=== PATIENT | female | born 1965 | race Two or more races ===

== ENCOUNTER → 2016-10-22 | Outpatient (CLI) | payer MEDICAID | LOC: WI 09:21 | PROVIDERS: ATTEND Internal Medicine | DX: M54.2 Cervicalgia (principal) | CPT/HCPCS: 76536 ==

== ENCOUNTER → 2017-02-22 | Outpatient (CLI) | payer MEDICAID ==
--- NOTE | 2017-03-06 10:37 | WOMENS IMAGING REPORT ---
EXAM DESCRIPTION: BILAT SCREENING MAMMO W/CAD COMPLETED DATE/TIME: 02/22/2017 10:47 am REASON FOR STUDY: ROUTINE SCREENING; Z12.31 Z12.31 ENCNTR SCREEN MAMMOGRAM FOR MALIGNANT NEOPLASM O F JEFF COMPARISON: Outside mammograms from 2013. TECHNIQUE: Standard craniocaudal and mediolateral oblique views of each breast recorded using I[employer]iFeng[employer] l acquisition. LIMITATIONS: None. FINDINGS: No masses, calcifications or architectural distortion. No areas of suspicion. Read with the assistance of CAD. .[facility] - R2 Cenova Version 1.3 .[facility] Imaging - R2 Cenova Version 1.3 .[facility] - R2 Cenova Version 2.4 .[facility] - R2 Cenova Version 2.4 .[facility] - R2 Fleet Service Clerk Version 9.2 IMPRESSION: NORMAL MAMMOGRAM. BIRADS 1. BREAST DENSITY: b. There are scattered areas of fibroglandular density. BIRAD: 1 NEGATIVE RECOMMENDATION: ROUTINE SCREENING COMMENT: The patient has been notified of the results by letter per SA requirements. Additional no tification policies are in place for contacting patient with suspicious or incomplete findings. Quality ID #[id number]: The [employer] recommends an annual screening mammogram for women aged 40 years or over. This facility utilizes a reminder system to ensure that all patients receive reminder letters, and/or direct phone calls for appointments. This includes reminders for routine scr eening mammograms, diagnostic mammograms, or other Breast Imaging Interventions when appropriate. Th is patient will be placed in the appropriate reminder system. The [employer] (ACR) has developed recommendations for screening MRI of the breast s in certain patient populations, to be used in conjunction with mammography. Breast MRI surveillanc e may be appropriate for women with more than 20% lifetime risk of developing breast cancer as deter mined by genetic testing, significant family history of the disease, or history of mantle radiation f or Hodgkins Disease. ACR Practice Guidelines 2008. TECHNICAL DOCUMENTATION: FINDING NUMBER: (1) ASSESSMENT: (1) JOB ID: [id number] [employer]- All Rights Reserved
== END ==
LOC: WI 09:53
PROVIDERS: ATTEND Internal Medicine
DX: Z12.31 Encounter for screening mammogram for malignant neoplasm of breast (principal)
CPT/HCPCS: 77067; G0202

== ENCOUNTER 2017-04-12 09:35 | Emergency (ER) | payer MEDICAID ==
[2017-04-12 09:46] VITALS: BP 156/93
--- NOTE | 2017-04-12 10:09 | ER Document Report ---
HPI - HPI Patient complains to provider of: left ear pain Onset: Yesterday Onset/Duration: Gradual Context: 52 yo female felt something biting and scratching inside left ear canal last night. No fever. No recent URI> used h202 to remove it. Never saw anything come out. Associated Symptoms: None Exacerbated by: Denies Relieved by: Denies - ROS ROS below otherwise negative: Yes Systems Reviewed and Negative: Yes All other systems reviewed and negative - REPRODUCTIVE Reproductive: DENIES: : Past Medical History - General Information source: Patient - Social History Smoking Status: Unknown if Ever Smoked Frequency of alcohol use: None Drug Abuse: None Lives with: Family Family History: Reviewed & Not Pertinent - Past Medical History Cardiac Medical History: Reports: Hx Hypertension Endocrine Medical History: Reports: Hx Diabetes Mellitus Type 2 GI Medical History: Reports: Hx Gastroesophageal Reflux Disease Musculoskeltal Medical History: Reports Hx Gout, Reports Hx Musculoskeletal Trauma Psychiatric Medical History: Reports: Hx Anxiety, Hx Bipolar Disorder, Hx Depression Past Surgical History: Reports: Hx Section - Immunizations Immunizations up to date: Yes Hx Diphtheria, Pertussis, Tetanus Vaccination: Yes Hx Pneumococcal Vaccination: 04/28/12 Vertical Provider Document - CONSTITUTIONAL Agree With Documented VS: Yes Exam Limitations: No Limitations General Appearance: No Apparent Distress - INFECTION CONTROL TRAVEL OUTSIDE OF THE [place] IN LAST 30 DAYS: No - HEENT HEENT: Normocephalic. negative: Tympanic Membrane Red, Tympanic Membrane Bulging Notes: mild fluid behind left TM, sensation clears if she valsalva's - NECK Neck: Supple. negative: Lymphadenopathy-Left, Lymphadenopathy-Right - RESPIRATORY Respiratory: Breath Sounds Normal, No Respiratory Distress O2 Sat by Pulse Oximetry: 97 - CARDIOVASCULAR Cardiovascular: Regular Rate, Regular Rhythm - NEURO Level of Consciousness: Awake, Alert, Appropriate - DERM Integumentary: Warm, Dry Course - Vital Signs Vital signs: Temp Pulse Resp BP Pulse Ox 97.4 F 94 18 156/93 H 97 04/12/17 09:44 04/12/17 09:44 04/12/17 09:44 04/12/17 09:44 04/12/17 09:44 Discharge - Discharge Clinical Impression: Acute serous otitis media, left ear Qualifiers: Recurrence: not specified as recurrent Qualified Code(s): H65.02 - Acute serous otitis media, left ear Condition: Good Disposition: HOME, SELF-CARE Instructions: Use of Diphenhydramine, ENT, Serous Otitis Media ([facility]) Additional Instructions: over the counter Benadryl may help See ears nose and throat doctor if persists to er any concerns Please complete the patient satisfaction survey if you get one, and return it.. If you do not receive a survey, then you can go to the [facility] website, [email or web address] and place your comments about your very good care. Thank you very much. It was a pleasure being your medical provider today.
== END 2017-04-12 10:18 | disposition home or self-care (01) ==
LOC: ER 09:35
DX: H65.02 Acute serous otitis media, left ear (principal); I10 Essential (primary) hypertension; E11.9 Type 2 diabetes mellitus without complications
CPT/HCPCS: 99282

== ENCOUNTER 2017-12-05 11:24 | Emergency (ER) | payer MEDICAID ==
--- NOTE | 2017-12-05 12:36 | RADIOLOGY REPORT (SQ) ---
EXAM DESCRIPTION: HAND LEFT 3 VIEWS COMPLETED DATE/TIME: 12/05/2017 12:27 pm REASON FOR STUDY: brick fell on left hand x 1 day ago COMPARISON: 01/14/2013 EXAM PARAMETERS: NUMBER OF VIEWS: Three views. TECHNIQUE: AP, lateral and oblique radiographic images acquired of the left hand. LIMITATIONS: None. FINDINGS: MINERALIZATION: Normal. BONES: There is a fracture of the neck of the 5th metacarpal with dorsal angulation. JOINTS: Degenerative joint changes are most prominent in the distal interphalangeal joints. SOFT TISSUES: No soft tissue swelling. No foreign body. OTHER: No other significant finding. IMPRESSION: Fracture of the neck of the 5th metacarpal. Degenerative joint disease. TECHNICAL DOCUMENTATION: JOB ID: [id number] [employer]- All Rights Reserved Reading location - IP/workstation name: [email or web address]
[2017-12-05] MEDS ORDERED: OXYCODONE-ACETAMINOPHEN 5-325 MG TABLET PO ONE (12:44)
--- NOTE | 2017-12-05 12:50 | ER Document Report ---
HPI - HPI Patient complains to provider of: Hand injury Onset: Yesterday Quality of pain: Achy Pain Level: 3 Context: Patient states yesterday she tripped over her dog and fell hitting her hand on a break. Patient complains of continued hand pain with swelling since then. Associated Symptoms: Other - Left hand pain. denies: Vomiting Exacerbated by: Movement Relieved by: Denies Similar symptoms previously: No Recently seen / treated by doctor: No - ROS ROS below otherwise negative: Yes Systems Reviewed and Negative: Yes All other systems reviewed and negative - NEURO Neurology: DENIES: Weakness - CARDIOVASCULAR Cardiovascular: DENIES: Chest pain - GASTROINTESTINAL Gastrointestinal: DENIES: Nausea, Patient vomiting - REPRODUCTIVE Reproductive: DENIES: : - MUSCULOSKELETAL Musculoskeletal: REPORTS: Extremity pain, Swelling - DERM Skin Color: Normal Past Medical History - General Information source: Patient - Social History Smoking Status: Current Every Day Smoker Smoking Education Provided: Yes Frequency of alcohol use: Occasional Drug Abuse: None Occupation: None Family History: Reviewed & Not Pertinent - Past Medical History Cardiac Medical History: Reports: Hx Hypertension Denies: Hx Atrial Fibrillation, Hx Congestive Heart Failure, Hx Coronary Artery Disease, Hx Heart Attack, Hx Hypercholesterolemia, Hx Peripheral Vascular Disease, Hx Heart Murmur Pulmonary Medical History: Denies: Hx Tuberculosis Endocrine Medical History: Reports: Hx Diabetes Mellitus Type 1, Hx Diabetes Mellitus Type 2. Denies: Hx Graves' Disease, Hx Hyperthyroidism, Hx Hypothyroidism Renal/ Medical History: Denies: Hx End Stage Renal Disease, Hx Kidney Stones, Hx Peritoneal Dialysis GI Medical History: Reports: Hx Gastroesophageal Reflux Disease. Denies: Hx Crohn's Disease, Hx Hiatal Hernia, Hx Irritable Bowel, Hx Liver Failure, Hx Pancreatitis, Hx Ulcer Musculoskeltal Medical History: Reports Hx Gout, Reports Hx Musculoskeletal Trauma Psychiatric Medical History: Reports: Hx Anxiety, Hx Bipolar Disorder, Hx Depression Denies: Hx Post Traumatic Stress Disorder, Hx Schizophrenia Past Surgical History: Reports: Hx Section. Denies: Hx Colostomy, Hx Pacemaker - Immunizations Immunizations up to date: Yes Hx Diphtheria, Pertussis, Tetanus Vaccination: Yes Hx Pneumococcal Vaccination: 04/28/12 Vertical Provider Document - CONSTITUTIONAL Agree With Documented VS: Yes Exam Limitations: No Limitations General Appearance: WD/WN, No Apparent Distress - INFECTION CONTROL TRAVEL OUTSIDE OF THE [place].S. IN LAST 30 DAYS: No - HEENT HEENT: Atraumatic, Normocephalic - NECK Neck: Normal Inspection - RESPIRATORY Respiratory: No Respiratory Distress - CARDIOVASCULAR Pulses: Normal: Radial - BACK Back: Normal Inspection - MUSCULOSKELETAL/EXTREMETIES Musculoskeletal/Extremeties: MAEW, Tender - Left hand tenderness over left 5th MC - NEURO Level of Consciousness: Awake, Alert, Appropriate Motor/Sensory: No Motor Deficit - DERM Integumentary: Warm, Dry, No Rash Course - Vital Signs Vital signs: Temp Pulse Resp BP Pulse Ox 98.6 F 92 20 147/72 H 97 12/05/17 11:37 12/05/17 11:37 12/05/17 11:37 12/05/17 11:37 12/05/17 11:37 - Diagnostic Test Radiology reviewed: Image reviewed, Reports reviewed Procedures - Immobilization Left Hand Pre-Proc Neuro Vasc Exam: Normal Immobilizer type: Ulnar Performed by: PCT Post-Proc Neuro Vasc Exam: Normal Alignment checked and good: Yes Discharge - Discharge Clinical Impression: Left hand fracture Qualifiers: Encounter type: initial encounter Fracture type: closed Qualified Code(s): S62.92XA - Unspecified fracture of left wrist and hand, initial encounter for closed fracture Condition: Stable Disposition: HOME, SELF-CARE Instructions: Fracture ([facility]), Ice & Elevation ([facility]), Oral Narcotic Medication ( [facility]), Temporary Splint ([facility]) Additional Instructions: Return immediately for any new or worsening symptoms Followup with your primary care provider, call tomorrow to make a followup appointment Follow-up with orthopedics, call today to make a follow-up appointment Prescriptions: Oxycodone HCl/Acetaminophen [Percocet 5-325 mg Tablet] 1 tab PO ASDIR PRN #12 tablet PRN Reason: Forms: Smoking Cessation Education Referrals: [facility] [Provider Group] - Follow up tomorrow
[2017-12-05 13:34] VITALS: BP 149/81
== END 2017-12-05 13:34 | disposition home or self-care (01) ==
LOC: ER 11:24
DX: S62.337A Displaced fracture of neck of fifth metacarpal bone, left hand, initial encounter for closed fracture (principal); W01.198A Fall on same level from slipping, tripping and stumbling with subsequent striking against other object, initial encounter; Y93.H2 Activity, gardening and landscaping; F17.200 Nicotine dependence, unspecified, uncomplicated; I10 Essential (primary) hypertension; E11.9 Type 2 diabetes mellitus without complications
CPT/HCPCS: 99283

== ENCOUNTER 2018-01-16 12:47 | Emergency (ER) | payer MEDICAID ==
[2018-01-16 13:03] VITALS: BP 139/61
--- NOTE | 2018-01-16 13:57 | ER Document Report ---
ED Medical Screen (RME) - General Chief Complaint: Abscess Stated Complaint: ABSCESS/VAGINAL AREA Time Seen by Provider: 01/16/18 13:53 Notes: 52-year-old poorly controlled diabetic complains of urinary tract infection symptoms, low back pain, and a boil on her vaginal area. She also complains of coughing all night every night. I have greeted and performed a rapid initial assessment of this patient. A comprehensive ED assessment and evaluation of the patient, analysis of test results and completion of the medical decision making process will be conducted by additional ED providers. TRAVEL OUTSIDE OF THE U.[place]. IN LAST 30 DAYS: No - Related Data Allergies/Adverse Reactions: acetaminophen [From Tylenol] Allergy (Verified 01/16/18 12:51) Past Medical History - Past Medical History Cardiac Medical History: Reports: Hx Hypertension Denies: Hx Atrial Fibrillation, Hx Congestive Heart Failure, Hx Coronary Artery Disease, Hx Heart Attack, Hx Hypercholesterolemia, Hx Peripheral Vascular Disease, Hx Heart Murmur Pulmonary Medical History: Denies: Hx Tuberculosis Endocrine Medical History: Reports: Hx Diabetes Mellitus Type 1, Hx Diabetes Mellitus Type 2. Denies: Hx Graves' Disease, Hx Hyperthyroidism, Hx Hypothyroidism Renal/ Medical History: Denies: Hx End Stage Renal Disease, Hx Kidney Stones, Hx Peritoneal Dialysis GI Medical History: Reports: Hx Gastroesophageal Reflux Disease. Denies: Hx Crohn's Disease, Hx Hiatal Hernia, Hx Irritable Bowel, Hx Liver Failure, Hx Pancreatitis, Hx Ulcer Musculoskeltal Medical History: Reports Hx Gout, Reports Hx Musculoskeletal Trauma Psychiatric Medical History: Reports: Hx Anxiety, Hx Bipolar Disorder, Hx Depression Denies: Hx Post Traumatic Stress Disorder, Hx Schizophrenia Past Surgical History: Reports: Hx Section. Denies: Hx Colostomy, Hx Pacemaker - Immunizations Immunizations up to date: Yes Hx Diphtheria, Pertussis, Tetanus Vaccination: Yes Physical Exam - Vital signs Vitals: Temp Pulse Resp BP Pulse Ox 99.4 F 96 16 139/61 H 97 01/16/18 13:01 01/16/18 13:01 01/16/18 13:01 01/16/18 13:01 01/16/18 13:01 Course - Vital Signs Vital signs: Temp Pulse Resp BP Pulse Ox 99.4 F 96 16 139/61 H 97 01/16/18 13:01 01/16/18 13:01 01/16/18 13:01 01/16/18 13:01 01/16/18 13:01 Doctor's Discharge - Discharge Referrals: SWAPNA TORRES MD [Primary Care Provider] - Follow up as needed
[2018-01-16 14:37] LABS: ABSOLUTE EOSINOPHILS # (AUTO) 0.1 10^3/uL (0.0-0.6); ABSOLUTE LYMPHOCYTES (AUTO) 2.6 10^3/uL (0.5-4.7); ABSOLUTE MONOCYTES (AUTO) 0.4 10^3/uL (0.1-1.4); BASOPHILS % (AUTO) 0.5 % (0-2); EOSINOPHILS % (AUTO) 1.6 % (0-6); HEMATOCRIT 36.9 % (36.0-47.0); HEMOGLOBIN 12.4 g/dL (12.0-15.5); MEAN CORPUSCULAR HEMOGLOBIN 30.5 pg (27.0-33.4); MEAN CORPUSCULAR HGB CONC 33.5 g/dL (32.0-36.0); MEAN CORPUSCULAR VOLUME 91 fl (80-97); MONOCYTES % (AUTO) 7.2 % (3-13); PLATELET COUNT 261 10^3/uL (150-450); RED BLOOD COUNT 4.05 10^6/uL (3.72-5.28); RED CELL DISTRIBUTION WIDTH 14.1 % (11.5-14.0); SEGMENTED NEUTROPHILS % (AUTO) 48.7 % (42-78); TOTAL CELLS COUNTED % (AUTO) 100 %; WHITE BLOOD COUNT 6.1 10^3/uL (4.0-10.5)
[2018-01-16 14:48] LABS: APPEARANCE,URINE CLEAR; BILIRUBIN,URINE NEGATIVE (NEGATIVE); COLOR,URINE STRAW; GLUCOSE, URINE >=500 mg/dL (NEGATIVE); KETONES,URINE NEGATIVE (NEGATIVE); LEUKOCYTE ESTERASE,URINE NEGATIVE (NEGATIVE); NITRITE,URINE NEGATIVE (NEGATIVE); PROTEIN,URINE NEGATIVE (NEGATIVE); URINE SPECIFIC GRAVITY 1.023; UROBILINOGEN,URINE NEGATIVE mg/dL (<2.0)
[2018-01-16 14:54] LABS: ALANINE AMINOTRANSFERASE 47 U/L (9-52); ALBUMIN 3.9 g/dL (3.5-5.0); ALKALINE PHOSPHATASE 109 U/L (38-126); ANION GAP 15 (5-19); ASPARTATE AMINO TRANSFERASE 49 U/L (14-36); BILIRUBIN,DIRECT 0.3 mg/dL (0.0-0.4); BILIRUBIN,TOTAL 0.3 mg/dL (0.2-1.3); BLOOD UREA NITROGEN 10 mg/dL (7-20); CALCIUM 10.2 mg/dL (8.4-10.2); CARBON DIOXIDE 26 mmol/L (22-30); CHLORIDE 99 mmol/L (98-107); SODIUM 140.4 mmol/L (137-145); TOTAL PROTEIN 7.2 g/dL (6.3-8.2)
[2018-01-16 15:02] LABS: GLUCOSE 471 mg/dL (75-110)
--- NOTE | 2018-01-16 17:15 | ER Document Report ---
ED General - General Mode of Arrival: Ambulatory Information source: Patient TRAVEL OUTSIDE OF THE U.[place]. IN LAST 30 DAYS: No <EDIE GRAF - Last Filed: 01/16/18 22:20> <RICK REYES - Last Filed: 01/16/18 22:58> - General Chief Complaint: Abscess Stated Complaint: ABSCESS/VAGINAL AREA Time Seen by Provider: 01/16/18 13:53 Notes: 52 y.o female with DM presents to the ED with a bump to her vagina of onset 3 days ago. Pt reports that she tried to make an appointment with the OBGYN but she was having to wait and the area for concern was "getting bigger and bigger by the day" and the pain was becoming unbearable. Pt denies any fevers, chills or vaginal discharge. Pt denies ever having this in the past. Pt's PCP is in [place]. (EDIE GRAF) - Related Data Allergies/Adverse Reactions: acetaminophen [From Tylenol] Allergy (Verified 01/16/18 12:51) Past Medical History - General Information source: Patient - Social History Smoking Status: Current Some Day Smoker Chew tobacco use (# tins/day): No Frequency of alcohol use: None Drug Abuse: None Family History: Reviewed & Not Pertinent Patient has suicidal ideation: No Patient has homicidal ideation: No - Past Medical History Cardiac Medical History: Reports: Hx Hypertension Denies: Hx Atrial Fibrillation, Hx Congestive Heart Failure, Hx Coronary Artery Disease, Hx Heart Attack, Hx Hypercholesterolemia, Hx Peripheral Vascular Disease, Hx Heart Murmur Pulmonary Medical History: Denies: Hx Tuberculosis Endocrine Medical History: Reports: Hx Diabetes Mellitus Type 1, Hx Diabetes Mellitus Type 2. Denies: Hx Graves' Disease, Hx Hyperthyroidism, Hx Hypothyroidism Renal/ Medical History: Denies: Hx End Stage Renal Disease, Hx Kidney Stones, Hx Peritoneal Dialysis GI Medical History: Reports: Hx Gastroesophageal Reflux Disease. Denies: Hx Crohn's Disease, Hx Hiatal Hernia, Hx Irritable Bowel, Hx Liver Failure, Hx Pancreatitis, Hx Ulcer Musculoskeltal Medical History: Reports Hx Gout, Reports Hx Musculoskeletal Trauma Psychiatric Medical History: Reports: Hx Anxiety, Hx Bipolar Disorder, Hx Depression Denies: Hx Post Traumatic Stress Disorder, Hx Schizophrenia Past Surgical History: Reports: Hx Section. Denies: Hx Colostomy, Hx Pacemaker - Immunizations Immunizations up to date: Yes Hx Diphtheria, Pertussis, Tetanus Vaccination: Yes Hx Pneumococcal Vaccination: 04/28/12 <EDIE GRAF - Last Filed: 01/16/18 22:20> Review of Systems - Review of Systems Constitutional: See HPI. denies: Chills, Fever EENT: No symptoms reported Cardiovascular: No symptoms reported Respiratory: No symptoms reported Gastrointestinal: No symptoms reported Genitourinary: No symptoms reported Female Genitourinary: See HPI, Other - bump to vagina with pain. denies: Vaginal discharge Musculoskeletal: No symptoms reported Skin: No symptoms reported Hematologic/Lymphatic: No symptoms reported Neurological/Psychological: No symptoms reported <EDEI GRAF - Last Filed: 01/16/18 22:20> Physical Exam <EDIE GRAF - Last Filed: 01/16/18 22:20> <RICK REYES H - Last Filed: 01/16/18 22:58> - Vital signs Vitals: Temp Pulse Resp BP Pulse Ox 99.4 F 96 16 139/61 H 97 01/16/18 13:01 01/16/18 13:01 01/16/18 13:01 01/16/18 13:01 01/16/18 13:01 - Notes Notes: Physical Exam: General: Alert, appears well. HEENT: Normocephalic. Atraumatic. PERRL. Extraocular movements intact. Oropharynx clear. Neck: Supple. Non-tender. Respiratory: No respiratory distress. Clear and equal breath sounds bilaterally. Cardiovascular: Regular rate and rhythm. Abdominal: Normal Inspection. Non-tender. No distension. Normal Bowel Sounds. Back: Non-tender. No deformity or step off. Extremities: Moves all four extremities. Upper extremities: Normal inspection. Normal ROM. Lower extremities: Normal inspection. No edema. Normal ROM. Neurological: Normal cognition. AAOx3. Normal speech. Psychological: Normal affect. Normal Mood. Skin: Warm. Dry. See genitourinary below. Genitourinary: 2X2cm cystic structure to the left lower labia (EDIE GRAF) Course - Laboratory Result Diagrams: 01/16/18 14:08 01/16/18 14:08 <EDIE GRAF - Last Filed: 01/16/18 22:20> - Laboratory Result Diagrams: 01/16/18 14:08 01/16/18 14:08 <RICK REYES - Last Filed: 01/16/18 22:58> - Re-evaluation Re-evalutation: 01/16/18 17:50 Word catheter placed. Will have patient follow-up next week with OB GEN. Patient placed on clindamycin. Return precautions provided (RICK REYES) - Vital Signs Vital signs: Temp Pulse Resp BP Pulse Ox 99.4 F 96 16 139/61 H 97 01/16/18 13:01 01/16/18 13:01 01/16/18 13:01 01/16/18 13:01 01/16/18 13:01 - Laboratory Laboratory results interpreted by me: 01/16/18 01/16/18 01/16/18 14:08 14:08 14:08 RDW 14.1 H Glucose 471 H* Hemoglobin A1c % 12.3 H AST 49 H Urine Glucose (UA) 01/16/18 14:08 RDW Glucose Hemoglobin A1c % AST Urine Glucose (UA) >=500 H Procedures - Incision and Drainage Left Labia Time completed: 17:37 Type: Single Anesthetic type: 1% Lidocaine mL's of anesthetic: 3 Incision Method: Incision made by scalpel Amount/type of drainage: 2cc of purulent bloody drainage. <EDIE GRAF - Last Filed: 01/16/18 22:20> Discharge <EDIE GRAF - Last Filed: 01/16/18 22:20> <RICK REYES - Last Filed: 01/16/18 22:58> - Discharge Clinical Impression: Bartholin's gland abscess Condition: Good Disposition: HOME, SELF-CARE Instructions: Abscess ([facility]), Bartholin Gland Cyst or Abscess ([facility]) Prescriptions: Clindamycin HCl 300 mg PO QID 10 Days #40 capsule Oxycodone HCl 5 mg PO TID #10 tablet Referrals: RAMIREZ CLIFFORD MD [ACTIVE STAFF] - Follow up in 3-5 days Scribe Attestation: 01/16/18 22:58 I personally performed the services described documentation, reviewed and edited the documentation which was dictated to describe my presence, and it accurately records my words and actions. (RICK REYES) Scribe Documentation - Scribe Written by Scribe:: Cullen Barajas 01/16/18 1705 acting as scribe for :: Long <EDIE GRAF - Last Filed: 01/16/18 22:20>
[2018-01-16] MEDS ORDERED: LIDOCAINE 1% INJ-PF (10 MG/ML) 30 ML SDV ONE (17:33)
[2018-01-16] MEDS ORDERED: LIDOCAINE 1% INJ-PF (10 MG/ML) 30 ML SDV INJ ONE (17:36)
[2018-01-16] MEDS ORDERED: OXYCODONE HCL IR 5 MG TABLET PO ONE (18:19)
== END 2018-01-16 18:41 | disposition home or self-care (01) ==
LOC: ER 12:47
PROC: 0U9MXZZ Drainage of Vulva, External Approach (ICD-10-PCS; principal; 2018-01-16)
DX: N75.1 Abscess of Bartholin's gland (principal); F17.200 Nicotine dependence, unspecified, uncomplicated; I10 Essential (primary) hypertension; E11.9 Type 2 diabetes mellitus without complications
CPT/HCPCS: 99283; 36415; 85025; 80053; 81001; 83036; 56405; J3490

== ENCOUNTER → 2018-03-05 | Outpatient (CLI) | payer MEDICAID ==
--- NOTE | 2018-03-05 09:53 | WOMENS IMAGING REPORT ---
EXAM DESCRIPTION: BILAT SCREENING MAMMO W/CAD COMPLETED DATE/TIME: 03/05/2018 9:28 am REASON FOR STUDY: ROUTINE BILATERAL SCREENING;Z12.31 Z12.31 ENCNTR SCREEN MAMMOGRAM FOR MALIGNANT N EOPLASM OF JEFF COMPARISON: 2016 TECHNIQUE: Standard craniocaudal and mediolateral oblique views of each breast recorded using [employer] acquisition. LIMITATIONS: None. FINDINGS: No masses, calcifications or architectural distortion. No areas of suspicion. Read with the assistance of CAD. .[facility] - R2 Cenova Version 1.3 .[facility] - R2 Cenova Version 1.3 .[facility] Imaging - R2 Cenova Version 2.4 .[facility] - R2 Cenova Version 2.4 .[facility] - R2 Film Reproducer Version 9.2 IMPRESSION: NORMAL MAMMOGRAM. BIRADS 1. BREAST DENSITY: b. There are scattered areas of fibroglandular density. BIRAD: 1 NEGATIVE RECOMMENDATION: ROUTINE SCREENING COMMENT: The patient has been notified of the results by letter per SA requirements. Additional no tification policies are in place for contacting patient with suspicious or incomplete findings. Quality ID #[id number]: The [employer] recommends an annual screening mammogram for women aged 40 years or over. This facility utilizes a reminder system to ensure that all patients receive reminder letters, and/or direct phone calls for appointments. This includes reminders for routine scr eening mammograms, diagnostic mammograms, or other Breast Imaging Interventions when appropriate. Th is patient will be placed in the appropriate reminder system. The [employer] (ACR) has developed recommendations for screening MRI of the breast s in certain patient populations, to be used in conjunction with mammography. Breast MRI surveillanc e may be appropriate for women with more than 20% lifetime risk of developing breast cancer as deter mined by genetic testing, significant family history of the disease, or history of mantle radiation f or Hodgkins Disease. ACR Practice Guidelines 2008. TECHNICAL DOCUMENTATION: FINDING NUMBER: (1) ASSESSMENT: (1) JOB ID: [id number] [employer]- All Rights Reserved Reading location - IP/workstation name: [email or web address]
== END ==
LOC: WI 09:22
PROVIDERS: ATTEND Internal Medicine
DX: Z12.31 Encounter for screening mammogram for malignant neoplasm of breast (principal)
CPT/HCPCS: 77067

== ENCOUNTER 2018-06-10 09:12 | Emergency (ER) | payer MEDICAID ==
[2018-06-10 09:16] VITALS: BP 178/88
--- NOTE | 2018-06-10 09:41 | ER Document Report ---
ED General - General Chief Complaint: Fall Stated Complaint: ARM PAIN Time Seen by Provider: 06/10/18 09:33 TRAVEL OUTSIDE OF THE [place] IN LAST 30 DAYS: No - HPI Patient complains to provider of: Shoulder pain Onset: Other - 53-year-old female with a history of hypertension as well as high cholesterol the presents for evaluation of shoulder pain in the setting of 3 days prior to falling while going down her steps. She landed on her right arm notes that since that time her right shoulder has been sore. Denies any loss of consciousness or trauma elsewhere any pain elsewhere says that she has been using Motrin to help with this and is been doing a pretty good job. - Related Data Allergies/Adverse Reactions: acetaminophen [From Tylenol] Allergy (Verified 06/10/18 09:37) Past Medical History - General Information source: Patient - Social History Smoking Status: Current Every Day Smoker Chew tobacco use (# tins/day): No Frequency of alcohol use: None Drug Abuse: None Family History: Reviewed & Not Pertinent Patient has suicidal ideation: No Patient has homicidal ideation: No - Past Medical History Cardiac Medical History: Reports: Hx Hypercholesterolemia, Hx Hypertension Denies: Hx Atrial Fibrillation, Hx Congestive Heart Failure, Hx Coronary Artery Disease, Hx Heart Attack, Hx Peripheral Vascular Disease, Hx Heart Murmur Pulmonary Medical History: Denies: Hx Tuberculosis Endocrine Medical History: Reports: Hx Diabetes Mellitus Type 1, Hx Diabetes Mellitus Type 2. Denies: Hx Graves' Disease, Hx Hyperthyroidism, Hx Hypothyroidism Renal/ Medical History: Denies: Hx End Stage Renal Disease, Hx Kidney Stones, Hx Peritoneal Dialysis GI Medical History: Reports: Hx Gastroesophageal Reflux Disease. Denies: Hx Crohn's Disease, Hx Hiatal Hernia, Hx Irritable Bowel, Hx Liver Failure, Hx Pancreatitis, Hx Ulcer Musculoskeletal Medical History: Reports Hx Gout, Reports Hx Musculoskeletal Trauma Psychiatric Medical History: Reports: Hx Anxiety, Hx Bipolar Disorder, Hx Depression Denies: Hx Post Traumatic Stress Disorder, Hx Schizophrenia Past Surgical History: Reports: Hx Section. Denies: Hx Colostomy, Hx Pacemaker - Immunizations Immunizations up to date: Yes Hx Diphtheria, Pertussis, Tetanus Vaccination: Yes Hx Pneumococcal Vaccination: 04/28/12 Review of Systems - Review of Systems -: Yes All other systems reviewed and negative Physical Exam - Vital signs Vitals: Temp Pulse Resp BP Pulse Ox 97.3 F 93 18 178/88 H 96 06/10/18 09:15 06/10/18 09:15 06/10/18 09:15 06/10/18 09:15 06/10/18 09:15 - General General appearance: Appears well - HEENT Head: Normocephalic, Atraumatic Eyes: Normal Pupils: PERRL - Respiratory Respiratory status: No respiratory distress Chest status: Nontender Breath sounds: Normal Chest palpation: Normal - Abdominal Inspection: Normal Distension: No distension Bowel sounds: Normal Tenderness: Nontender Organomegaly: No organomegaly - Back Back: Normal, Nontender - Extremities General upper extremity: Normal inspection, Normal color, Normal ROM, Normal temperature General lower extremity: Normal inspection, Nontender, Normal color, Normal ROM , Normal temperature, Normal weight bearing. No: Evelin's sign Shoulder: Tender - Tenderness over the anterior deltoid - Psychological Associated symptoms: Normal affect, Normal mood Course - Re-evaluation Re-evalutation: 06/10/18 09:41 53-year-old female with hypertension hyperlipidemia and diabetes that presents for evaluation of shoulder pain after fall. Does not have any suggestion of injury elsewhere does have tenderness over the deltoid. Current plan is for this patient undergo x-ray imaging will reassess disposition determining imaging. 06/10/18 10:39 X-ray shows no obvious fractures dislocation or listhesis. We will plan for expectant management discharge. - Vital Signs Vital signs: Temp Pulse Resp BP Pulse Ox 97.3 F 93 18 178/88 H 96 06/10/18 09:15 06/10/18 09:15 06/10/18 09:15 06/10/18 09:15 06/10/18 09:15 Discharge - Discharge Clinical Impression: Right shoulder strain Qualifiers: Encounter type: initial encounter Qualified Code(s): S46.911A - Strain of unspecified muscle, fascia and tendon at shoulder and upper arm level, right arm , initial encounter Condition: Good Disposition: HOME, SELF-CARE Instructions: Muscle Strain (OM) Additional Instructions: Your seen today in the emergency department for the pain in her shoulder. It appears that the pain in her shoulder is likely result of a muscle strain. Make sure that you are using the shoulder afognak exercises which we discussed in the emergency department, rotate your shoulder each way as it angles 10 times at least 6 times per day. Use Motrin as needed for pain. Use the cream provided to you to help with pain. Schedule appointment with your doctor in the coming week to help with your symptoms. Prescriptions: Diclofenac Sodium [Voltaren] 100 gm TP BID #1 gel..gm. Forms: Smoking Cessation Education, Elevated Blood Pressure, Return to Work Referrals: NELY ZURITA MD [Primary Care Provider] - Follow up as needed
--- NOTE | 2018-06-10 10:01 | RADIOLOGY REPORT (SQ) ---
EXAM DESCRIPTION: SHOULDER RIGHT 2 OR MORE VIEWS COMPLETED DATE/TIME: 06/10/2018 9:51 am REASON FOR STUDY: shoulder pain post fall COMPARISON: None. NUMBER OF VIEWS: Three views. TECHNIQUE: Internal rotation, external rotation, and Y view images acquired of the right shoulder. LIMITATIONS: None. FINDINGS: MINERALIZATION: Normal. BONES: No acute fracture or dislocation. No worrisome bone lesions. JOINTS: No glenohumeral dislocation. Mild bony spurring at the acromioclavicular joint without joint space widening VISUALIZED LUNGS AND RIBS: No pneumothorax. No rib fracture. SOFT TISSUES: No radiopaque foreign body. OTHER: No other significant finding. IMPRESSION: NEGATIVE STUDY OF THE RIGHT SHOULDER. NO RADIOGRAPHIC EVIDENCE OF ACUTE INJURY. TECHNICAL DOCUMENTATION: JOB ID: [id number] [employer]- All Rights Reserved Reading location - IP/workstation name: [email or web address]
== END 2018-06-10 10:37 | disposition home or self-care (01) ==
LOC: ER 09:12
DX: S46.911A Strain of unspecified muscle, fascia and tendon at shoulder and upper arm level, right arm, initial encounter (principal); W10.9XXA Fall (on) (from) unspecified stairs and steps, initial encounter; E78.00 Pure hypercholesterolemia, unspecified; F17.200 Nicotine dependence, unspecified, uncomplicated; E11.9 Type 2 diabetes mellitus without complications; Z88.6 Allergy status to analgesic agent
CPT/HCPCS: 99283

== ENCOUNTER 2018-08-02 18:07 | Emergency (ER) | payer MEDICAID ==
[2018-08-02 18:15] VITALS: BP 133/78
--- NOTE | 2018-08-02 19:10 | RADIOLOGY REPORT (SQ) ---
EXAM DESCRIPTION: FINGER RIGHT COMPLETED DATE/TIME: 08/02/2018 7:00 pm REASON FOR STUDY: "jammed" right 4th digit COMPARISON: None. NUMBER OF VIEWS: Three views. TECHNIQUE: AP, lateral, and oblique images acquired of the right fourth finger. LIMITATIONS: None. FINDINGS: MINERALIZATION: Normal. BONES: No acute fracture or dislocation. No worrisome bone lesions. Background of degenerative brown ges predominantly involving the distal interphalangeal joints. SOFT TISSUES: No soft tissue swelling. No foreign body. OTHER: No other significant finding. IMPRESSION: NO RADIOGRAPHIC EVIDENCE OF ACUTE INJURY. COMMENT: SITE OF TRAUMA/COMPLAINT MARKED/STAMP COMPLETED: No TECHNICAL DOCUMENTATION: JOB ID: [id number] [employer]- All Rights Reserved Reading location - IP/workstation name: [email or web address]
--- NOTE | 2018-08-02 19:46 | ER Document Report ---
HPI - HPI Patient complains to provider of: fall Time Seen by Provider: 08/02/18 19:28 Pain Level: 3 Context: 53 female with diabetes presents to the emergency department after a fall on outstretched hand of the right side. She jammed her right ring finger and was concerned that it was broken so she came to the emergency department. She complains of swelling, ecchymosis, pain. She denies fevers, chills, nausea, vomiting, diarrhea, any other symptoms. - REPRODUCTIVE Reproductive: DENIES: : Past Medical History - Social History Smoking Status: Former Smoker Family History: Reviewed & Not Pertinent - Past Medical History Cardiac Medical History: Reports: Hx Hypercholesterolemia, Hx Hypertension Denies: Hx Atrial Fibrillation, Hx Congestive Heart Failure, Hx Coronary Artery Disease, Hx Heart Attack, Hx Peripheral Vascular Disease, Hx Heart Murmur Pulmonary Medical History: Denies: Hx Tuberculosis Endocrine Medical History: Reports: Hx Diabetes Mellitus Type 1, Hx Diabetes Mellitus Type 2. Denies: Hx Graves' Disease, Hx Hyperthyroidism, Hx Hypothyroidism Renal/ Medical History: Denies: Hx End Stage Renal Disease, Hx Kidney Stones, Hx Peritoneal Dialysis GI Medical History: Reports: Hx Gastroesophageal Reflux Disease. Denies: Hx Crohn's Disease, Hx Hiatal Hernia, Hx Irritable Bowel, Hx Liver Failure, Hx Pancreatitis, Hx Ulcer Musculoskeletal Medical History: Reports Hx Gout, Reports Hx Musculoskeletal Trauma Psychiatric Medical History: Reports: Hx Anxiety, Hx Bipolar Disorder, Hx Depression Denies: Hx Post Traumatic Stress Disorder, Hx Schizophrenia Past Surgical History: Reports: Hx Section. Denies: Hx Colostomy, Hx Pacemaker - Immunizations Immunizations up to date: Yes Hx Diphtheria, Pertussis, Tetanus Vaccination: Yes Hx Pneumococcal Vaccination: 04/28/12 Vertical Provider Document - CONSTITUTIONAL Agree With Documented VS: Yes Notes: PHYSICAL EXAMINATION: Reviewed vital signs and charting by RN GENERAL: Well-appearing, well-nourished and in no acute distress. HEAD: Atraumatic, normocephalic. EYES: Pupils equal round, extraocular movements intact, sclera anicteric, conjunctiva are normal. ENT: nares patent, oropharynx clear without exudates. Moist mucous membranes. EXTREMITIES: Normal range of motion, no pitting or edema. No cyanosis. Right r ing finger with some mild swelling and ecchymosis most notably on the volar side. No obvious deformity. Normal elbow and shoulder exam on the right side. NEUROLOGICAL: Face symmetric. PSYCH: Normal mood, normal affect. SKIN: Warm, Dry, normal turgor, no rashes or lesions noted. - INFECTION CONTROL TRAVEL OUTSIDE OF THE [place] IN LAST 30 DAYS: No Course - Re-evaluation Re-evalutation: 08/02/18 19:44 Pleasant 53-year-old female with diabetes presents with a injury to her ring finger of the right hand after a fall on outstretched hand. She was concerned that it was broken so she sought care. She has good range of motion and distal neurovascular exam is normal. There is some ecchymosis and some mild edema. X- ray of the hand shows no evidence of dislocation or fracture. Patient was educated on conservative treatment. Offered patient put in a splint but she declined. I told her she could also ra tape it and she agreed to that. Patient was also educated that she could take Motrin 600 mg every 6 hours. Patient is in complete agreement with the plan and stable to discharge home. - Vital Signs Vital signs: Temp Pulse Resp BP Pulse Ox 98.3 F 89 18 133/78 H 97 08/02/18 18:13 08/02/18 18:13 08/02/18 18:13 08/02/18 18:13 08/02/18 18:13 Discharge - Discharge Clinical Impression: Injury of right ring finger Qualifiers: Encounter type: initial encounter Qualified Code(s): S69.91XA - Unspecified injury of right wrist, hand and finger(s), initial encounter Condition: Good Disposition: HOME, SELF-CARE Instructions: Ra Taping (fingers) ([facility]), Sprained Finger ([facility]) Referrals: NELY ZURITA MD [Primary Care Provider] - Follow up as needed
== END 2018-08-02 19:48 | disposition home or self-care (01) ==
LOC: ER 18:07
DX: S60.041A Contusion of right ring finger without damage to nail, initial encounter (principal); W19.XXXA Unspecified fall, initial encounter; I10 Essential (primary) hypertension; E11.9 Type 2 diabetes mellitus without complications; Z87.891 Personal history of nicotine dependence
CPT/HCPCS: 99283

== ENCOUNTER 2018-08-12 08:20 | Emergency (ER) | payer MEDICAID ==
[2018-08-12] MEDS ORDERED: KETOROLAC TROMETHAMINE INJ/PF 30 MG/1 ML SDV IM ONE (09:18)
[2018-08-12] MEDS ORDERED: LIDOCAINE 5% (700 MG) TRANSDERMAL ADH..PATCH TP ONE (09:18)
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
--- NOTE | 2018-08-12 10:06 | RADIOLOGY REPORT (SQ) ---
EXAM DESCRIPTION: RIBS RIGHT W/PA CHEST COMPLETED DATE/TIME: 08/12/2018 9:43 am REASON FOR STUDY: Rt postero lateral rib pain s/p injury COMPARISON: None. TECHNIQUE: Frontal view of the chest and additional views of the right ribs acquired. NUMBER OF VIEWS: Five view. LIMITATIONS: None. FINDINGS: FRONTAL CXR: No pneumothorax. No pleural effusion. No atelectasis or infiltrates. RIBS: Mildly displaced posterolateral right 9th rib fracture. OTHER: No other significant finding. IMPRESSION: Mildly displaced posterolateral right 9th rib fracture. No pneumothorax. COMMENT: SITE OF TRAUMA/COMPLAINT MARKED/STAMP COMPLETED: NO. TECHNICAL DOCUMENTATION: JOB ID: [id number] [employer]- All Rights Reserved Reading location - IP/workstation name: [email or web address]
[2018-08-12 10:18] VITALS: BP 156/87
== END 2018-08-12 10:18 | disposition home or self-care (01) ==
LOC: ER 08:20
DX: S22.31XA Fracture of one rib, right side, initial encounter for closed fracture (principal); S01.81XA Laceration without foreign body of other part of head, initial encounter; R07.81 Pleurodynia; Y08.89XA Assault by other specified means, initial encounter; E11.9 Type 2 diabetes mellitus without complications; Z79.4 Long term (current) use of insulin; I10 Essential (primary) hypertension
CPT/HCPCS: 99283; 96372; 71101; J1885; J3490

== ENCOUNTER → 2018-10-15 | Outpatient (CLI) | payer MEDICAID ==
--- NOTE | 2018-10-15 12:24 | WOMENS IMAGING REPORT ---
EXAM DESCRIPTION: U/S ABDOMEN LIMITED COMPLETED DATE/TIME: 10/15/2018 10:06 am REASON FOR STUDY: R10.11 RIGHT UPPER QUADRANT PAIN R10.11 RIGHT UPPER QUADRANT PAIN COMPARISON: None. TECHNIQUE: Dynamic and static grayscale images acquired of the abdomen and recorded on PACS. Additio dionne selected color Doppler and spectral images recorded. LIMITATIONS: Limited visualization. Poor acoustical window. Patient not fasting. FINDINGS: PANCREAS: No masses. Visualized pancreatic duct normal caliber. LIVER: Hepatomegaly. Moderate to marked fatty infiltration. No focal masses. LIVER VASCULATURE: Normal directional flow of the main portal vein and hepatic veins. GALLBLADDER: Gallstone(s). No pericholecystic fluid. No wall thickening. ULTRASOUND-DETECTED HENDERSON'S SIGN: Negative. INTRAHEPATIC DUCTS AND COMMON DUCT: CBD and intrahepatic ducts normal caliber. No filling defects. INFERIOR VENA CAVA: Obscured. AORTA: Obscured. RIGHT KIDNEY: Normal size. Normal echogenicity. No solid or suspicious masses. No hydronephros is. No calcifications. PERITONEAL AND RIGHT PLEURAL SPACE: No ascites or effusions. OTHER: No other significant findings. IMPRESSION: Hepatomegaly. Fatty liver. Cholelithiasis. TECHNICAL DOCUMENTATION: JOB ID: [id number] [employer]- All Rights Reserved Reading location - IP/workstation name: [email or web address]
== END ==
LOC: WI 09:13
PROVIDERS: ATTEND Family Medicine
DX: R10.11 Right upper quadrant pain (principal); K80.80 Other cholelithiasis without obstruction; K76.0 Fatty (change of) liver, not elsewhere classified; R16.0 Hepatomegaly, not elsewhere classified
CPT/HCPCS: 76705

== ENCOUNTER 2019-12-01 17:01 | Emergency (ER) | payer MEDICAID ==
--- NOTE | 2019-12-01 18:31 | ER Document Report ---
ED Medical Screen (RME) - General Chief Complaint: Flank Pain Stated Complaint: FLANK PAIN, RIGHT WRIST PAIN Time Seen by Provider: 12/01/19 18:27 Primary Care Provider: LEXI GRANT MD [Primary Care Provider] - Follow up as needed Mode of Arrival: Ambulatory Information source: Patient Notes: 54-year-old female presented to ED for complaint of left flank pain times a week. She states she went to her doctor twice this week and they checked her for infection and she had no infection told her to come to the emergency room to be evaluated. States she has have a nausea off and on. She states she also hit her right hand and it is painful. She states she was not able to get x-ray for that either. I have greeted and performed a rapid initial assessment of this patient. A comprehensive ED assessment and evaluation of the patient, analysis of test results and completion of medical decision making process will be conducted by an additional ED providers. TRAVEL OUTSIDE OF THE [place] IN LAST 30 DAYS: No - Related Data Allergies/Adverse Reactions: acetaminophen [From Tylenol] Allergy (Verified 08/12/18 08:21) Past Medical History - Social History Frequency of alcohol use: None Drug Abuse: None - Past Medical History Cardiac Medical History: Reports: Hx Hypercholesterolemia, Hx Hypertension Denies: Hx Atrial Fibrillation, Hx Congestive Heart Failure, Hx Coronary Artery Disease, Hx Heart Attack, Hx Peripheral Vascular Disease, Hx Heart Murmur Pulmonary Medical History: Denies: Hx Tuberculosis Endocrine Medical History: Reports: Hx Diabetes Mellitus Type 1, Hx Diabetes Mellitus Type 2. Denies: Hx Graves' Disease, Hx Hyperthyroidism, Hx Hypothyroidism Renal/ Medical History: Denies: Hx End Stage Renal Disease, Hx Kidney Stones, Hx Peritoneal Dialysis GI Medical History: Reports: Hx Gastroesophageal Reflux Disease. Denies: Hx Crohn's Disease, Hx Hiatal Hernia, Hx Irritable Bowel, Hx Liver Failure, Hx Pancreatitis, Hx Ulcer Musculoskeltal Medical History: Reports Hx Gout, Reports Hx Musculoskeletal Trauma, Denies Hx Systemic Lupus Erythematosus Psychiatric Medical History: Reports: Hx Anxiety, Hx Bipolar Disorder, Hx Depression Denies: Hx Post Traumatic Stress Disorder, Hx Schizophrenia Past Surgical History: Reports: Hx Section. Denies: Hx Colostomy, Hx Pacemaker - Immunizations Immunizations up to date: Yes Hx Diphtheria, Pertussis, Tetanus Vaccination: Yes Physical Exam - Vital signs Vitals: Temp Pulse Resp BP Pulse Ox 98 F 91 18 174/89 H 97 12/01/19 17:07 12/01/19 17:07 12/01/19 17:07 12/01/19 17:07 12/01/19 17:07 Course - Vital Signs Vital signs: Temp Pulse Resp BP Pulse Ox 98 F 91 18 174/89 H 97 12/01/19 18:22 12/01/19 17:07 12/01/19 17:07 12/01/19 17:07 12/01/19 17:07 Doctor's Discharge - Discharge Referrals: LEXI GRANT MD [Primary Care Provider] - Follow up as needed
[2019-12-01] MEDS ORDERED: ONDANSETRON 4 MG TAB.RAPDIS PO ONE (18:32)
--- NOTE | 2019-12-01 18:54 | RADIOLOGY REPORT (SQ) ---
EXAM DESCRIPTION: HAND RIGHT 3 VIEWS IMAGES COMPLETED DATE/TIME: 12/01/2019 6:41 pm REASON FOR STUDY: pain and injury COMPARISON: None. EXAM PARAMETERS: NUMBER OF VIEWS: Three views. TECHNIQUE: AP, lateral and oblique radiographic images acquired of the right hand. LIMITATIONS: None. FINDINGS: MINERALIZATION: Normal. BONES: No acute fracture or dislocation. No worrisome bone lesions. JOINTS: There is mild narrowing of the interphalangeal joints. Slight to mild narrowing suggested a t the metacarpophalangeal joints. SOFT TISSUES: No soft tissue swelling. No foreign body. OTHER: No other significant finding. IMPRESSION: 1. Degenerative arthritic changes involving the hand. 2. No acute osseous findings. TECHNICAL DOCUMENTATION: JOB ID: [id number] 2010 [employer]- All Rights Reserved Reading location - IP/workstation name: [email or web address]
--- NOTE | 2019-12-01 18:57 | RADIOLOGY REPORT (SQ) ---
EXAM DESCRIPTION: CT ABD/PELVIS NO ORAL OR IV IMAGES COMPLETED DATE/TIME: 12/01/2019 6:45 pm REASON FOR STUDY: left flank pain COMPARISON: None. TECHNIQUE: CT scan of the abdomen and pelvis performed without intravenous or oral contrast. Images reviewed with lung, soft tissue, and bone windows. Reconstructed coronal and sagittal MPR images revi ewed. All images stored on PACS. All CT scanners at this facility use dose modulation, iterative reconstruction, and/or weight based d osing when appropriate to reduce radiation dose to as low as reasonably achievable (ALARA). [facility]: Dose Right [facility]: CareDose [facility]: Dose Right [facility]: Teradose 4D [facility]: [employer] RADIATION DOSE: CT Rad equipment meets quality standard of care and radiation dose reduction techniq ues were employed. CTDIvol: 11.5 mGy. DLP: 676 mGy-cm.mGy. LIMITATIONS: None. FINDINGS: LOWER CHEST: No significant findings. No nodules or infiltrates. NON-CONTRASTED LIVER, SPLEEN, ADRENALS: Hepatomegaly. The spleen and adrenal glands are normal. PANCREAS: No masses. No peripancreatic inflammatory changes. GALLBLADDER: Some tiny gallstones are present. RIGHT KIDNEY AND URETER: No suspicious masses. Assessment limited by lack of IV contrast. No signif icant calcifications. No hydronephrosis or hydroureter. LEFT KIDNEY AND URETER: No suspicious masses. Assessment limited by lack of IV contrast. No signifi cant calcifications. No hydronephrosis or hydroureter. AORTA AND RETROPERITONEUM: No aneurysm. No retroperitoneal masses or adenopathy. BOWEL AND PERITONEAL CAVITY: Sigmoid diverticulosis with no acute inflammatory changes. No obvious b owel mass. APPENDIX: Not identified. PELVIS, BLADDER, AND ABDOMINAL WALL:No abnormal masses. No free fluid. Bladder normal. BONES: No significant findings. OTHER: No other significant finding. IMPRESSION: Cholelithiasis. Sigmoid diverticulosis. No urinary findings. COMMENT: Quality ID # [id number]: Final reports with documentation of one or more dose reduction techniques (e.g., Automated exposure control, adjustment of the mA and/or kV according to patient size, use of iterative reconstruction technique) TECHNICAL DOCUMENTATION: JOB ID: [id number] 2010 [employer]- All Rights Reserved Reading location - IP/workstation name: [email or web address]
[2019-12-01 19:02] LABS: APPEARANCE,URINE CLEAR; BILIRUBIN,URINE NEGATIVE (NEGATIVE); COLOR,URINE STRAW; GLUCOSE, URINE >=500 mg/dL (NEGATIVE); KETONES,URINE NEGATIVE (NEGATIVE); LEUKOCYTE ESTERASE,URINE NEGATIVE (NEGATIVE); NITRITE,URINE NEGATIVE (NEGATIVE); PROTEIN,URINE 100 mg/dL (NEGATIVE); URINE SPECIFIC GRAVITY 1.032; UROBILINOGEN,URINE NEGATIVE mg/dL (<2.0)
[2019-12-01 19:07] LABS: ABSOLUTE EOSINOPHILS # (AUTO) 0.1 10^3/uL (0.0-0.6); ABSOLUTE LYMPHOCYTES (AUTO) 3.2 10^3/uL (0.5-4.7); ABSOLUTE MONOCYTES (AUTO) 0.5 10^3/uL (0.1-1.4); ABSOLUTE NEUT (AUTO) 2.3 10^3/uL (1.7-8.2); BASOPHILS % (AUTO) 0.7 % (0-2); EOSINOPHILS % (AUTO) 0.8 % (0-6); HEMATOCRIT 43.9 % (36.0-47.0); HEMOGLOBIN 14.8 g/dL (12.0-15.5); LYMPHOCYTES % (AUTO) 52.7 % (13-45); MEAN CORPUSCULAR HEMOGLOBIN 30.5 pg (27.0-33.4); MEAN CORPUSCULAR HGB CONC 33.6 g/dL (32.0-36.0); MEAN CORPUSCULAR VOLUME 91 fl (80-97); MONOCYTES % (AUTO) 7.6 % (3-13); PLATELET COUNT 261 10^3/uL (150-450); RED BLOOD COUNT 4.83 10^6/uL (3.72-5.28); RED CELL DISTRIBUTION WIDTH 13.3 % (11.5-14.0); SEGMENTED NEUTROPHILS % (AUTO) 38.2 % (42-78); TOTAL CELLS COUNTED % (AUTO) 100 %; WHITE BLOOD COUNT 6.1 10^3/uL (4.0-10.5)
[2019-12-01 19:58] LABS: ALBUMIN 4.4 g/dL (3.5-5.0); ALKALINE PHOSPHATASE 157 U/L (38-126); ANION GAP 9 (5-19); ASPARTATE AMINO TRANSFERASE 44 U/L (14-36); BILIRUBIN,TOTAL 0.3 mg/dL (0.2-1.3); BLOOD UREA NITROGEN 15 mg/dL (7-20); CALCIUM 10.6 mg/dL (8.4-10.2); CARBON DIOXIDE 28 mmol/L (22-30); CHLORIDE 98 mmol/L (98-107); GLUCOSE 294 mg/dL (75-110); POTASSIUM 3.6 mmol/L (3.6-5.0); TOTAL PROTEIN 7.9 g/dL (6.3-8.2)
[2019-12-01 20:51] VITALS: BP 139/87
== END 2019-12-02 | disposition left against medical advice (07) ==
LOC: ER 17:01
DX: Z53.21 Procedure and treatment not carried out due to patient leaving prior to being seen by health care provider (principal); R10.9 Unspecified abdominal pain
CPT/HCPCS: 36415; 74176; 80053; 81001; 85025; 87086; 87088; 99281

== ENCOUNTER 2019-12-14 08:51 | Emergency (ER) | payer MEDICAID ==
[2019-12-14 08:57] VITALS: BP 163/90
[2019-12-14] MEDS ORDERED: NORMAL SALINE 1000 ML 1,000 ML IV ONE (09:24)
--- NOTE | 2019-12-14 09:47 | ER Document Report ---
Entered by MAYRA ANN SCRIBE 12/14/19 0917 Acting as scribe for:ANTONINO RUSS MD ED GI/ - General Chief Complaint: Abdominal Pain Stated Complaint: ABDOMINAL PAIN Time Seen by Provider: 12/14/19 09:05 Primary Care Provider: LEXI GRANT MD [Primary Care Provider] - Follow up as needed Mode of Arrival: Ambulatory Information source: Patient Notes: This 54 year old female patient presents to the emergency department today with complaints of left sided flank/abdominal pain for the last two weeks or more. This patient was seen in this ED on 12/01/[address] scan of the abdomen and pelvis ordered by the [facility] provider, but she left prior to being seen by another provider. Patient mentions that she had an outpatient gallbladder ultrasound recently which showed gallstones. TRAVEL OUTSIDE OF THE [place] 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 Drug Abuse: None Family History: Reviewed & Not Pertinent - Past Medical History Cardiac Medical History: Reports: Hx Hypercholesterolemia, Hx Hypertension Endocrine Medical History: Reports: Hx Diabetes Mellitus Type 2 GI Medical History: Reports: Hx Gastroesophageal Reflux Disease Musculoskeletal Medical History: Reports Hx Gout, Reports Hx Musculoskeletal Trauma Psychiatric Medical History: Reports: Hx Anxiety, Hx Bipolar Disorder, Hx Depression Past Surgical History: Reports: Hx Section - Immunizations Immunizations up to date: Yes Hx Diphtheria, Pertussis, Tetanus Vaccination: Yes Hx Pneumococcal Vaccination: 04/28/12 Review of Systems - Review of Systems Constitutional: No symptoms reported EENT: No symptoms reported Cardiovascular: No symptoms reported Respiratory: No symptoms reported Gastrointestinal: See HPI, Abdominal pain - left Genitourinary: See HPI, Flank pain - left Female Genitourinary: No symptoms reported Musculoskeletal: No symptoms reported Skin: No symptoms reported Hematologic/Lymphatic: No symptoms reported Neurological/Psychological: No symptoms reported -: Yes All other systems reviewed and negative Physical Exam - Vital signs Vitals: Temp 98.3 F 12/14/19 08:51 - Notes Notes: Physical Exam: General: Alert, appears well. HEENT: Normocephalic. Atraumatic. PERRL. Extraocular movements intact. Oropharynx clear. Neck: Supple. Non-tender. Respiratory: No respiratory distress. Clear and equal breath sounds bilaterally. Cardiovascular: Regular rate and rhythm. Abdominal: There is tenderness with palpation around the left flank inferior to the lateral rib margin. The is mild tenderness over the inferior lateral ribs on the left, there is no tenderness over the muscles inferior to the ribs. When lying supine, palpation of these left sided flank muscles while trying to do a sit up causes increasing tenderness with palpation, decreased tenderness when muscles are relaxed. Back: No gross abnormalities. Extremities: Moves all four extremities. Upper extremities: Normal inspection. Normal ROM. Lower extremities: Normal inspection. No edema. Normal ROM. Neurological: Normal cognition. AAOx4. Normal speech. Psychological: Normal affect. Normal Mood. Skin: Warm. Dry. Normal color. Course - Re-evaluation Re-evalutation: 12/14/19 13:[address] scan today does show an asymmetric skin thickening with subcutaneous fat stranding of the panniculus on the left in the region where the patient's pain is located. White blood cell count is not elevated. She does not have fever. There is no definite erythema through the skin, however she is dark skinned. As this could be a cellulitis, and the patient has diabetes, we will treat with antibiotics and analgesics. - Vital Signs Vital signs: Temp Pulse Resp BP Pulse Ox 98.3 F 92 18 163/90 H 95 12/14/19 09:32 12/14/19 08:56 12/14/19 08:56 12/14/19 08:56 12/14/19 08:56 - Laboratory Result Diagrams: 12/14/19 09:55 12/14/19 09:55 Laboratory results interpreted by me: 12/14/19 12/14/19 12/14/19 09:55 09:55 10:17 Lymph % (Auto) 46.1 H Sodium 135.3 L Creatinine 0.32 L Glucose 321 H Calcium 10.5 H Alkaline Phosphatase 158 H Urine Protein 100 H Urine Glucose (UA) >=500 H - Diagnostic Test Radiology reviewed: Image reviewed, Reports reviewed - Double contrasted CT scan of the abdomen pelvis shows asymmetric skin thickening and subcutaneous fat stranding of the panniculus on the left which should be clinically correlated to exclude a cellulitis. Discharge - Discharge Clinical Impression: Cellulitis of left abdominal wall Condition: Stable Disposition: HOME, SELF-CARE Additional Instructions: Cellulitis: You CT scan shows you may have an infection of your skin and underlying soft tissues called cellulitis. This is due to bacteria, which can enter through any break in the skin, or even through an irritated hair follicle. Untreated, cellulitis will usually worsen. Antibiotics are required. Usually, warm packs or warm soaks, and elevation of the infected area are recommended. You should start getting better within 24 to 36 hours. Most infections respond quickly to the right medication. Follow-up care is important, however, to check for abscess (boil) formation, unsuspected foreign body, or resistant infection. If you develop fever, chills, or if the area of infection is becoming rapidly more swollen or painful, call the doctor at once. Take the doxycycline antibiotic as prescribed. Take ibuprofen 600 mg every 8 hours for control of pain and inflammation. Take the Percocet as prescribed for pain if needed. Rest and use moist heat to the painful skin area. Follow-up with your primary care provider this week for recheck. RETURN TO THE EMERGENCY ROOM IF ANY NEW OR WORSENING SYMPTOMS. Prescriptions: Doxycycline Hyclate 100 mg PO BID #20 tablet. Oxycodone HCl/Acetaminophen [Percocet 5-325 mg Tablet] 1 tab PO ASDIR PRN #12 tablet PRN Reason: Referrals: LEXI GRANT MD [Primary Care Provider] - Follow up as needed I personally performed the services described in the documentation, reviewed and edited the documentation which was dictated to the scribe in my presence, and it accurately records my words and actions.
[2019-12-14 10:06] LABS: ABSOLUTE EOSINOPHILS # (AUTO) 0.1 10^3/uL (0.0-0.6); ABSOLUTE LYMPHOCYTES (AUTO) 2.8 10^3/uL (0.5-4.7); ABSOLUTE MONOCYTES (AUTO) 0.3 10^3/uL (0.1-1.4); ABSOLUTE NEUT (AUTO) 2.8 10^3/uL (1.7-8.2); BASOPHILS % (AUTO) 0.5 % (0-2); HEMATOCRIT 42.4 % (36.0-47.0); HEMOGLOBIN 14.3 g/dL (12.0-15.5); LYMPHOCYTES % (AUTO) 46.1 % (13-45); MEAN CORPUSCULAR HEMOGLOBIN 30.3 pg (27.0-33.4); MEAN CORPUSCULAR HGB CONC 33.7 g/dL (32.0-36.0); MEAN CORPUSCULAR VOLUME 90 fl (80-97); MONOCYTES % (AUTO) 5.6 % (3-13); PLATELET COUNT 266 10^3/uL (150-450); RED BLOOD COUNT 4.73 10^6/uL (3.72-5.28); RED CELL DISTRIBUTION WIDTH 13.1 % (11.5-14.0); SEGMENTED NEUTROPHILS % (AUTO) 46.8 % (42-78); TOTAL CELLS COUNTED % (AUTO) 100 %; WHITE BLOOD COUNT 6.1 10^3/uL (4.0-10.5)
[2019-12-14 10:34] LABS: APPEARANCE,URINE CLEAR; BILIRUBIN,URINE NEGATIVE (NEGATIVE); COLOR,URINE YELLOW; GLUCOSE, URINE >=500 mg/dL (NEGATIVE); KETONES,URINE NEGATIVE (NEGATIVE); LEUKOCYTE ESTERASE,URINE NEGATIVE (NEGATIVE); NITRITE,URINE NEGATIVE (NEGATIVE); PROTEIN,URINE 100 mg/dL (NEGATIVE); URINE SPECIFIC GRAVITY 1.027; UROBILINOGEN,URINE NEGATIVE mg/dL (<2.0)
[2019-12-14 10:35] LABS: ALBUMIN 4.6 g/dL (3.5-5.0); ALKALINE PHOSPHATASE 158 U/L (38-126); ANION GAP 12 (5-19); ASPARTATE AMINO TRANSFERASE 29 U/L (14-36); BILIRUBIN,TOTAL 0.4 mg/dL (0.2-1.3); BLOOD UREA NITROGEN 11 mg/dL (7-20); CALCIUM 10.5 mg/dL (8.4-10.2); CARBON DIOXIDE 25 mmol/L (22-30); CHLORIDE 98 mmol/L (98-107); GLUCOSE 321 mg/dL (75-110); POTASSIUM 4.3 mmol/L (3.6-5.0); TOTAL PROTEIN 7.9 g/dL (6.3-8.2)
[2019-12-14] MEDS ORDERED: DIPHENHYDRAMINE HCL 50 MG/ML VIAL IV ONE (11:16)
[2019-12-14] MEDS ORDERED: KETOROLAC TROMETHAMINE INJ/PF 30 MG/1 ML SDV IV ONE (11:16)
--- NOTE | 2019-12-14 12:39 | RADIOLOGY REPORT (SQ) ---
EXAM DESCRIPTION: CT ABD/PELVIS WITH IV ORAL IMAGES COMPLETED DATE/TIME: 12/14/2019 12:16 pm REASON FOR STUDY: Left-sided abdominal pain x3 weeks COMPARISON: None. TECHNIQUE: CT scan of the abdomen and pelvis performed using helical scanning technique with dynamic intravenous contrast injection. No oral contrast. Images reviewed with lung, soft tissue, and bone windows. Reconstructed coronal and sagittal MPR images reviewed. Delayed images for evaluation of the urinary system also acquired. All images stored on PACS. All CT scanners at this facility use dose modulation, iterative reconstruction, and/or weight based d osing when appropriate to reduce radiation dose to as low as reasonably achievable (ALARA). [facility]: Dose Right [facility]: CareDose [facility]: Dose Right [facility]: Teradose 4D [facility]: [employer] [facility] [employer] CONTRAST TYPE AND DOSE: Contrast/concentration: Isovue 350.00 mg/ml; Total Contrast Delivered: 90.0 ml; Total Saline Delivered: 49.4 ml RENAL FUNCTION: GFR > 60. RADIATION DOSE: CT Rad equipment meets quality standard of care and radiation dose reduction techniq ues were employed. CTDIvol: 12.9 - 17.1 mGy. DLP: 1714 mGy-cm. LIMITATIONS: None. FINDINGS: LOWER CHEST: Chronic fractures of the right posterior 10th, 9 and 8th ribs. LIVER: The relative hypoattenuation of the hepatic parenchyma compared to the splenic parenchyma on t he portal venous phase is suggestive of underlying hepatic steatosis. The portal veins are patent. There is no hepatic mass. SPLEEN: No splenomegaly or splenic mass. PANCREAS: No acute abnormality of the pancreas. GALLBLADDER: Cholelithiasis. There is no gallbladder wall thickening or pericholecystic inflammation . ADRENAL GLANDS: No mass or asymmetry. RIGHT KIDNEY AND URETER: No solid mass, hydronephrosis, nephrolithiasis, hydroureter or ureterolithi asis. LEFT KIDNEY AND URETER: No solid mass, hydronephrosis, nephrolithiasis, hydroureter or ureterolithias is. AORTA AND VESSELS: No aneurysm of the abdominal aorta. The abdominopelvic vasculature is patent. RETROPERITONEUM: No retroperitoneal adenopathy, hemorrhage or mass. BOWEL AND PERITONEAL CAVITY: Nonenlarged partially calcified lymph nodes around the deny hepatis. T here is colonic diverticulosis without diverticulitis. There is no bowel obstruction, bowel wall thi ckening or pericolonic/ perienteric inflammation. There is no free intraperitoneal fluid or mesenter ic/ omental inflammation. APPENDIX: Normal. PELVIS: Uterine fibroids. The urinary bladder is distended and normal in appearance. There is no ab normality of the adnexa that is apparent on CT. ABDOMINAL WALL: Asymmetric skin thickening and subcutaneous fat stranding of the panniculus on the le ft (image 90 of series 3). There there are fat containing umbilical and right inguinal hernias. BONES: Degenerative spondylosis and facet arthropathy of the lumbar spine with grade 1 anterolisthesi s of L4 relative to S1. OTHER: No other finding. IMPRESSION: 1. No acute intra-abdominal abnormality. 2. Asymmetric skin thickening and subcutaneous fat stranding of the panniculus on the left (image 90 of series 3) - correlate clinically to exclude a cellulitis. 3. Other secondary nonemergent findings as detailed above. TECHNICAL DOCUMENTATION: JOB ID: [id number] Quality ID # [id number]: Final reports with documentation of one or more dose reduction techniques (e.g., Au tomated exposure control, adjustment of the mA and/or kV according to patient size, use of iterative reconstruction technique) 2010 [employer]- All Rights Reserved Reading location - IP/workstation name: [email or web address]
[2019-12-14] MEDS ORDERED: DOXYCYCLINE HYCLATE 100 MG TABLET PO ONE (13:09)
[2019-12-14] MEDS ORDERED: OXYCODONE-ACETAMINOPHEN 5-325 MG TABLET PO ONE (13:09)
== END 2019-12-14 13:26 | disposition home or self-care (01) ==
LOC: ER 08:51
DX: L03.311 Cellulitis of abdominal wall (principal); F17.210 Nicotine dependence, cigarettes, uncomplicated; I10 Essential (primary) hypertension; E11.9 Type 2 diabetes mellitus without complications; Z88.6 Allergy status to analgesic agent
CPT/HCPCS: 99284; 96361; 96374; 96375; 36415; 83690; 85025; 80053; 81001; 74177; J1200; J3490; J1885; J7030

== ENCOUNTER 2019-12-23 22:03 | Emergency (ER) | payer MEDICAID ==
--- NOTE | 2019-12-23 22:51 | ER Document Report ---
ED Medical Screen (RME) - General Chief Complaint: Flank Pain Stated Complaint: ABDOMINAL PAIN Time Seen by Provider: 12/23/19 22:44 Primary Care Provider: LEXI GRANT MD [Primary Care Provider] - Follow up as needed Information source: Patient Notes: Patient presents complaining of left lateral side pain and flank pain for the past month. Patient states that worsening of her pain symptoms today that prompted her visit. Patient denies any fever or urinary symptoms. Patient denies any vomiting or diarrhea. Patient does report occasional nausea. Patient states she was here recently and diagnosed with cellulitis. I have greeted and performed a rapid initial assessment of this patient. A comprehensive ED assessment and evaluation of the patient, analysis of test results and completion of the medical decision making process will be conducted by additional ED providers. TRAVEL OUTSIDE OF THE [place] IN LAST 30 DAYS: No Past Medical History - Social History Frequency of alcohol use: Occasional Drug Abuse: None - Past Medical History Cardiac Medical History: Reports: Hx Hypercholesterolemia, Hx Hypertension Denies: Hx Atrial Fibrillation, Hx Congestive Heart Failure, Hx Coronary Artery Disease, Hx Heart Attack, Hx Peripheral Vascular Disease, Hx Heart Murmur Pulmonary Medical History: Denies: Hx Tuberculosis Endocrine Medical History: Reports: Hx Diabetes Mellitus Type 1, Hx Diabetes Mellitus Type 2. Denies: Hx Graves' Disease, Hx Hyperthyroidism, Hx Hypothyroidism Renal/ Medical History: Denies: Hx End Stage Renal Disease, Hx Kidney Stones, Hx Peritoneal Dialysis GI Medical History: Reports: Hx Gastroesophageal Reflux Disease. Denies: Hx Crohn's Disease, Hx Hiatal Hernia, Hx Irritable Bowel, Hx Liver Failure, Hx Pancreatitis, Hx Ulcer Musculoskeltal Medical History: Reports Hx Gout, Reports Hx Musculoskeletal Trauma, Denies Hx Systemic Lupus Erythematosus Psychiatric Medical History: Reports: Hx Anxiety, Hx Bipolar Disorder, Hx Depression Denies: Hx Post Traumatic Stress Disorder, Hx Schizophrenia Past Surgical History: Reports: Hx Section. Denies: Hx Colostomy, Hx Pacemaker - Immunizations Immunizations up to date: Yes Hx Diphtheria, Pertussis, Tetanus Vaccination: Yes Physical Exam - Vital signs Vitals: Temp Pulse BP Pulse Ox 98.2 F 83 178/88 H 95 12/23/19 22:19 12/23/19 22:19 12/23/19 22:19 12/23/19 22:19 - Abdominal Tenderness: Tender - Left lateral side tenderness - Back Back: CVA tenderness - Left Course - Vital Signs Vital signs: Temp Pulse Resp BP Pulse Ox 98.2 F 83 24 H 178/88 H 95 12/23/19 22:44 12/23/19 22:19 12/23/19 22:22 12/23/19 22:19 12/23/19 22:19 Doctor's Discharge - Discharge Referrals: LEXI GRANT MD [Primary Care Provider] - Follow up as needed
[2019-12-23 23:24] LABS: ABSOLUTE EOSINOPHILS # (AUTO) 0.1 10^3/uL (0.0-0.6); ABSOLUTE LYMPHOCYTES (AUTO) 3.9 10^3/uL (0.5-4.7); ABSOLUTE MONOCYTES (AUTO) 0.3 10^3/uL (0.1-1.4); ABSOLUTE NEUT (AUTO) 2.1 10^3/uL (1.7-8.2); BASOPHILS % (AUTO) 0.6 % (0-2); EOSINOPHILS % (AUTO) 1.4 % (0-6); HEMATOCRIT 41.2 % (36.0-47.0); HEMOGLOBIN 13.8 g/dL (12.0-15.5); MEAN CORPUSCULAR HEMOGLOBIN 30.2 pg (27.0-33.4); MEAN CORPUSCULAR HGB CONC 33.6 g/dL (32.0-36.0); MEAN CORPUSCULAR VOLUME 90 fl (80-97); MONOCYTES % (AUTO) 5.3 % (3-13); PLATELET COUNT 259 10^3/uL (150-450); RED BLOOD COUNT 4.58 10^6/uL (3.72-5.28); RED CELL DISTRIBUTION WIDTH 13.2 % (11.5-14.0); SEGMENTED NEUTROPHILS % (AUTO) 32.7 % (42-78); TOTAL CELLS COUNTED % (AUTO) 100 %; WHITE BLOOD COUNT 6.5 10^3/uL (4.0-10.5)
[2019-12-23 23:35] LABS: APPEARANCE,URINE CLOUDY; BILIRUBIN,URINE NEGATIVE (NEGATIVE); COLOR,URINE YELLOW; GLUCOSE, URINE 50 mg/dL (NEGATIVE); KETONES,URINE NEGATIVE (NEGATIVE); LEUKOCYTE ESTERASE,URINE MODERATE (NEGATIVE); NITRITE,URINE NEGATIVE (NEGATIVE); PROTEIN,URINE >=500 mg/dL (NEGATIVE); URINE SPECIFIC GRAVITY 1.022; UROBILINOGEN,URINE NEGATIVE mg/dL (<2.0)
[2019-12-23 23:38] LABS: ALBUMIN 4.3 g/dL (3.5-5.0); ALKALINE PHOSPHATASE 139 U/L (38-126); ANION GAP 8 (5-19); ASPARTATE AMINO TRANSFERASE 27 U/L (14-36); BILIRUBIN,DIRECT 0.1 mg/dL (0.0-0.4); BILIRUBIN,TOTAL 0.3 mg/dL (0.2-1.3); BLOOD UREA NITROGEN 18 mg/dL (7-20); CALCIUM 10.1 mg/dL (8.4-10.2); CARBON DIOXIDE 32 mmol/L (22-30); CHLORIDE 98 mmol/L (98-107); GLUCOSE 133 mg/dL (75-110); POTASSIUM 3.4 mmol/L (3.6-5.0); TOTAL PROTEIN 7.5 g/dL (6.3-8.2)
[2019-12-24] MEDS ORDERED: HYDROCODONE/ACETAMINOPHEN 5-325 MG (6 TAB/ER DISP) PO PRN ×2 (04:59→05:40)
[2019-12-24] MEDS ORDERED: CEFTRIAXONE 1 GM/D5W RTU 1 GM/50 ML RTUPB IV ONE (04:59)
--- NOTE | 2019-12-24 05:03 | ER Document Report ---
ED General - General Chief Complaint: Flank Pain Stated Complaint: ABDOMINAL PAIN Time Seen by Provider: 12/23/19 22:44 Primary Care Provider: LEXI GRANT MD [PEDIATRICS] - Follow up as needed Notes: Patient is a 54-year-old female with a history of diabetes who presents to emergency department the chief complaint of left-sided flank pain. She states this is been ongoing for approximately 1 month. She was seen here recently and had a CAT scan of the abdomen showed some findings consistent with possible cellulitis to the left side. She was treated with doxycycline. She states she is not improved and the pain seems to be worsening. She denies any specific urinary complaints. Denies history of kidney stones. Admits to some nausea but denies vomiting. Denies any fever chills or night sweats. TRAVEL OUTSIDE OF THE [place] IN LAST 30 DAYS: No Past Medical History - General Information source: Patient - Social History Smoking Status: Current Every Day Smoker Frequency of alcohol use: Occasional Drug Abuse: None Family History: Reviewed & Not Pertinent Patient has homicidal ideation: No - Past Medical History Cardiac Medical History: Reports: Hx Hypercholesterolemia, Hx Hypertension Denies: Hx Atrial Fibrillation, Hx Congestive Heart Failure, Hx Coronary Artery Disease, Hx Heart Attack, Hx Peripheral Vascular Disease, Hx Heart Murmur Pulmonary Medical History: Denies: Hx Tuberculosis Endocrine Medical History: Reports: Hx Diabetes Mellitus Type 1, Hx Diabetes Mellitus Type 2. Denies: Hx Graves' Disease, Hx Hyperthyroidism, Hx Hypothyroidism Renal/ Medical History: Denies: Hx End Stage Renal Disease, Hx Kidney Stones, Hx Peritoneal Dialysis GI Medical History: Reports: Hx Gastroesophageal Reflux Disease. Denies: Hx Crohn's Disease, Hx Hiatal Hernia, Hx Irritable Bowel, Hx Liver Failure, Hx Pancreatitis, Hx Ulcer Musculoskeletal Medical History: Reports Hx Gout, Reports Hx Musculoskeletal Trauma, Denies Hx Systemic Lupus Erythematosus Psychiatric Medical History: Reports: Hx Anxiety, Hx Bipolar Disorder, Hx Depression Denies: Hx Post Traumatic Stress Disorder, Hx Schizophrenia Past Surgical History: Reports: Hx Section. Denies: Hx Colostomy, Hx Pacemaker - Immunizations Immunizations up to date: Yes Hx Diphtheria, Pertussis, Tetanus Vaccination: Yes Hx Pneumococcal Vaccination: 04/28/12 Review of Systems - Review of Systems Genitourinary: Flank pain -: Yes All other systems reviewed and negative Physical Exam - Vital signs Vitals: Temp Pulse BP Pulse Ox 98.2 F 83 178/88 H 95 12/23/19 22:19 12/23/19 22:19 12/23/19 22:19 12/23/19 22:19 - General General appearance: Appears well, Alert - Respiratory Respiratory status: No respiratory distress Chest status: Nontender Breath sounds: Normal Chest palpation: Normal - Cardiovascular Rhythm: Regular Heart sounds: Normal auscultation - Abdominal Inspection: Normal Distension: No distension Bowel sounds: Normal Tenderness: Tender - Course of the left flank - Back Back: CVA tenderness - Left-sided - Neurological Neuro grossly intact: Yes Cognition: Normal Orientation: AAOx4 - Psychological Associated symptoms: Normal affect, Normal mood - Skin Skin Temperature: Warm Skin Moisture: Dry Skin Color: Normal, Other - No skin changes overlying the left flank concerning for cellulitis or rash formation Course - Re-evaluation Re-evalutation: 12/24/19 05:47 Patient's history, physical and urinalysis consistent with a pyelonephritis. She was started on Rocephin here, given a short course of pain medications to be discharged with. We will start her on Keflex as well outpatient. Counseled her regarding the importance of outpatient follow-up in 2 to 3 days for reevaluation. Advised she return here any ER immediately with any new, persistent or worsening symptoms. She verbalized understood and agreed. - Vital Signs Vital signs: Temp Pulse Resp BP Pulse Ox 98.2 F 83 24 H 178/88 H 95 12/23/19 22:44 12/23/19 22:19 12/23/19 22:22 12/23/19 22:19 12/23/19 22:19 - Laboratory Result Diagrams: 12/23/19 22:52 12/23/19 22:52 Laboratory results interpreted by me: 12/23/19 12/23/19 12/23/19 22:52 22:52 23:13 Lymph % (Auto) 60.0 H Seg Neutrophils % 32.7 L Potassium 3.4 L Carbon Dioxide 32 H Creatinine 0.40 L Glucose 133 H Alkaline Phosphatase 139 H Urine Protein >=500 H Urine Glucose (UA) 50 H Ur Leukocyte Esterase MODERATE H Discharge - Discharge Clinical Impression: Pyelonephritis Condition: Stable Disposition: HOME, SELF-CARE Instructions: Pyelonephritis ([facility]) Additional Instructions: Follow-up with your regular doctor in 2 to 3 days for reevaluation. Return here or any ER immediately with any new, persistent or worsening symptoms. Prescriptions: Cephalexin Monohydrate [Keflex 500 mg Capsule] 500 mg PO QID #40 capsule Referrals: LEXI GRANT MD [PEDIATRICS] - Follow up as needed
[2019-12-24 06:16] VITALS: BP 164/80
--- NOTE | 2019-12-24 08:03 | EKG REPORT ---
SEVERITY:- ABNORMAL ECG - SINUS RHYTHM BORDERLINE T WAVE ABNORMALITIES PROLONGED QT INTERVAL : Confirmed by: Macarena Del Toro MD 24-Dec-2019 08:02:35
== END 2019-12-24 06:16 | disposition home or self-care (01) ==
LOC: ER 22:03
DX: N12 Tubulo-interstitial nephritis, not specified as acute or chronic (principal); R10.9 Unspecified abdominal pain; R10.819 Abdominal tenderness, unspecified site; R11.0 Nausea; F17.200 Nicotine dependence, unspecified, uncomplicated; I10 Essential (primary) hypertension; E11.9 Type 2 diabetes mellitus without complications; Z87.19 Personal history of other diseases of the digestive system
CPT/HCPCS: 93005; 99284; 96365; 36415; 85025; 80053; 81001; 93010; J0696

== ENCOUNTER 2020-01-08 08:41 | Day surgery (SDC) | payer MEDICAID ==
[~2020-01-08 08:41] MED LIST: PROPOFOL INJ 200 MG/20 ML VIAL IV ONE
[2020-01-08] MEDS ORDERED: INSULIN LISPRO 100 UNIT/ML 3 ML VIAL ONE (09:55)
[2020-01-08] MEDS ORDERED: INSULIN LISPRO 100 UNIT/ML 3 ML VIAL SUBCUT ONE (10:15)
[2020-01-08] MEDS ORDERED: PROPOFOL INJ 200 MG/20 ML VIAL IV ONE (11:24)
--- NOTE | 2020-01-08 11:37 | Operative Report ---
Operative Report DATE OF SURGERY: 01/08/20 Operative Report: The risk, benefits and alternatives of the procedure including the risk of bleeding, perforation requiring surgery have been explained to the patient in detail and informed consent has been obtained. Patient is placed in a left, lateral decubital position. Timeout was called. Propofol medication is administered. Rectal examination is done which did not reveal any masses, tears or fissures. An Olympus videoscope was introduced into the patient's rectum and carefully advanced all the way to the cecum. Cecum was identified by the usual anatomical landmarks including the ileocecal valve as well as the appendiceal office. Photodocumentation is obtained. Scope was then sequentially pulled back via the various segments of the colon including the ascending colon, hepatic flexure transverse colon, splenic flexure, descending colon finding to the rectosigmoid portions of the colon. Retroflexion maneuvers performed. The risks benefits and alternatives of the procedure explained to the patient in detail and informed consent is obtained.A GIF Olympus video scope was inserted into the patient's mouth and hypopharynx, the esophagus is identified intubated and insufflated ,the scope was then advanced through the esophagus stomach and duodenum, retroflexion maneuver is done the esophagus stomach and first and second portions of the duodenum examined PREOPERATIVE DIAGNOSIS: Abdominal pain, change of bowel habits POSTOPERATIVE DIAGNOSIS: Colon biopsy obtain random rule out collagenous colitis. Internal hemorrhoids. Gastritis status post biopsy OPERATION: Colonoscopy with biopsy EGD with biopsy SURGEON: MINERVA FERNANDEZ ANESTHESIA: LMAC TISSUE REMOVED OR ALTERED: As noted above. COMPLICATIONS: None. ESTIMATED BLOOD LOSS: None. INTRAOPERATIVE FINDINGS: As noted above. PROCEDURE: Patient tolerated the procedure well No immediate postprocedure complications are noted. Patient is discharged in good condition. Discharge date 01/08/2020. Discharge diet: Regular. Discharge activity: Regular. 2 to 3-week follow-up to discuss findings. Patient is instructed to call the office or proceed to the emergency room should there be any further problems or questions. Wait on the pathology. 10-year surveillance colonoscopy if biopsies negative.
[2020-01-08 14:14] VITALS: BP 160/79
== END 2020-01-08 12:05 | disposition home or self-care (01) ==
LOC: END 08:41
PROVIDERS: ATTEND Internal Medicine Gastroenterology
DX: K29.70 Gastritis, unspecified, without bleeding (principal); B96.81 Helicobacter pylori [H. pylori] as the cause of diseases classified elsewhere; R19.4 Change in bowel habit; K64.8 Other hemorrhoids; F17.210 Nicotine dependence, cigarettes, uncomplicated; I10 Essential (primary) hypertension; E11.9 Type 2 diabetes mellitus without complications; K76.0 Fatty (change of) liver, not elsewhere classified; Z88.5 Allergy status to narcotic agent; Z88.8 Allergy status to other drugs, medicaments and biological substances; Z79.82 Long term (current) use of aspirin; Z79.899 Other long term (current) drug therapy; Z79.84 Long term (current) use of oral hypoglycemic drugs; Z79.4 Long term (current) use of insulin
CPT/HCPCS: 43239; 45380; 82962; 87635; 88342 ×2; 88305 ×2; 00813; J1815; J2704; C9803; 813

== ENCOUNTER 2020-02-24 10:52 | Day surgery (SDC) | payer MEDICAID ==
[~2020-02-24 10:52] MED LIST changes: +CHONDR SU A NA/HYALUR INTRAOC KIT (SURGICARE) ONE; +EPINEPHRINE INJ/PF 1 MG/1 ML AMPULE ONE; +KETOROLAC TROMETHAMINE 0.45% 4 DROP/0.4 ML DROPERETTE OS PRN; +LIDOCAINE 1%/PHENYLEPHRINE 1.5% 0.8 ML SYRINGE ONE; -PROPOFOL INJ 200 MG/20 ML VIAL IV ONE
[2020-02-24] MEDS ORDERED: FENTANYL CITRATE INJ/PF 100 MCG/2 ML AMPUL ONE (12:08)
[2020-02-24] MEDS ORDERED: MIDAZOLAM 2 MG/2 ML INJ ONE (12:08)
[2020-02-24] MEDS ORDERED: ONDANSETRON HCL INJ/PF 4 MG/2 ML SDV ONE (12:08)
[2020-02-24] MEDS: TETRACAINE HCL 0.5% OPH SOLN 4 ML OS PRN ×3 (12:43→13:07)
[2020-02-24] MEDS: CYCLOPENTOLATE 0.2%/PHENYLEPHRINE 1% OPH SOLN 2 ML OS PRN ×3 (12:43→12:57)
[2020-02-24] MEDS: TROPICAMIDE 1% OPH SOLN 15 ML OS PRN ×3 (12:43→12:57)
[2020-02-24] MEDS: BESIFLOXACIN HCL 0.6% OPH SUSP 5 ML BOTTLE OS PRN ×4 (12:43→13:25)
[2020-02-24] MEDS: DORZOLAMIDE HCL 2%/TIMOLOL MALEAT 0.5% OPH SOLN 10 ML OS PRN ×2 (13:25)
--- NOTE | 2020-02-24 13:56 | Operative Report ---
Operative Report-[facility] Operative Report: DATE OF SURGERY: February 24, 2020 PREOPERATIVE DIAGNOSIS: NUCLEAR CATARACT, LEFT EYE. POSTOPERATIVE DIAGNOSIS: NUCLEAR CATARACT, LEFT EYE. PROCEDURE PERFORMED: PHACOEMULSIFICATION WITH POSTERIOR CHAMBER INTRAOCULAR LENS IMPLANT, LEFT EYE. SURGEON: Jose L Cristina DO MEDICATIONS AND ANESTHESIA: Versed: IV Versed Tetracaine drops: 1 to 2 drops given as needed COMPLICATION: None INDICATIONS FOR SURGERY: Medical necessity: Best corrected visual acuity worse than 20/40 secondary to cataracts with impairment of ability to carry out needs or desired activities, blurred vision, visual distortion, reduced contrast sensitivity and/or glare with association functional impairment and supporting documentation/testing, and cataracts causing symptomatic impairment of visual functions not corrected with tolerable changes in glasses or contact lenses interfering with activities of daily life. PROCEDURE: Consent: The risks, benefits and alternatives of this procedures was discussed with the patient. The patient read and signed the consent forms, was identified and was seated in the exam chair. IOL: MX 60 E 24.0 IOL Diopters: Phacoemulsification with posterior chamber intraocular lens implant: The face was prepped with 5% povidone iodine solution, and a few drops of 5% povidone iodine solution was instilled into the inferior fornix. A non-fenestrated drape was placed over the eye and the lids were parted with the speculum. A paracentesis was made with a 15 degree blade, and 1% lidocaine MPF followed by viscoelastic was injected into the anterior chamber. A 2.4 mm metal micro- keratome was used to create a temporal clear corneal incision. A circular anterior capsulorrhexis was created, followed by hydro-dissection and hydro- delineation. The phacoemulsification hand piece was inserted and the nucleus was removed with the Phaco chop technique. The irrigation-aspiration hand piece was used to remove the residual cortex, and vacuum the posterior capsule. The capsular bag was inflated and viscoelastic and the above-mentioned IOL was injected into the eye with care to insert both leaning and trailing haptics in the capsular bag. The irrigation/aspiration hand piece was reinserted to remove residual viscoelastic from the capsular bag and anterior chamber. The corneal incision was hydrated, and anterior chamber was inflated with sterile BSS via the paracentesis site, and found to be watertight. Postop medication:1 drop of prednisolone into operative by followed by 1 drop of Cosopt into operative eye followed by 1 drop of Besivance intraoperative by Other:
== END 2020-02-24 13:58 | disposition home or self-care (01) ==
LOC: SC 10:52
PROVIDERS: ATTEND Ophthalmology
DX: H25.12 Age-related nuclear cataract, left eye (principal); E11.9 Type 2 diabetes mellitus without complications; I10 Essential (primary) hypertension; F17.210 Nicotine dependence, cigarettes, uncomplicated; Z79.899 Other long term (current) drug therapy; Z79.4 Long term (current) use of insulin; Z88.5 Allergy status to narcotic agent; M10.9 Gout, unspecified
CPT/HCPCS: 66984; 82962; V2632; J2250; J3490 ×4; J0171; J3010; J2405; 142

== ENCOUNTER 2020-03-09 09:37 | Day surgery (SDC) | payer MEDICAID ==
[~2020-03-09 09:37] MED LIST changes: +KETOROLAC TROMETHAMINE 0.45% 4 DROP/0.4 ML DROPERETTE OD PRN; -KETOROLAC TROMETHAMINE 0.45% 4 DROP/0.4 ML DROPERETTE OS PRN
[2020-03-09] MEDS: TETRACAINE HCL 0.5% OPH SOLN 4 ML OD PRN ×3 (09:59→10:32)
[2020-03-09] MEDS: TROPICAMIDE 1% OPH SOLN 15 ML OD PRN ×3 (09:59→10:11)
[2020-03-09] MEDS: BESIFLOXACIN HCL 0.6% OPH SUSP 5 ML BOTTLE OD PRN ×4 (09:59→10:49)
[2020-03-09] MEDS: CYCLOPENTOLATE 0.2%/PHENYLEPHRINE 1% OPH SOLN 2 ML OD PRN ×3 (09:59→10:10)
[2020-03-09] MEDS ORDERED: ONDANSETRON HCL INJ/PF 4 MG/2 ML SDV ONE (10:10)
[2020-03-09] MEDS ORDERED: FENTANYL CITRATE INJ/PF 100 MCG/2 ML AMPUL ONE (10:10)
[2020-03-09] MEDS ORDERED: MIDAZOLAM 2 MG/2 ML INJ ONE (10:10)
[2020-03-09] MEDS: PREDNISOLONE ACETATE 1% OPH SUSP 5 ML OD PRN ×2 (10:49)
[2020-03-09] MEDS: DORZOLAMIDE HCL 2%/TIMOLOL MALEAT 0.5% OPH SOLN 10 ML OD PRN ×2 (10:49)
--- NOTE | 2020-03-09 11:22 | Operative Report ---
Operative Report-[facility] Operative Report: DATE OF SURGERY: March 09, 2020 PREOPERATIVE DIAGNOSIS: NUCLEAR CATARACT, RIGHT EYE. POSTOPERATIVE DIAGNOSIS: NUCLEAR CATARACT, RIGHT EYE. PROCEDURE PERFORMED: PHACOEMULSIFICATION WITH POSTERIOR CHAMBER INTRAOCULAR LENS IMPLANT, RIGHT EYE. SURGEON: Jose L Cristina DO MEDICATIONS AND ANESTHESIA: Versed: IV Versed Tetracaine drops: 1 to 2 drops given as needed COMPLICATION: None INDICATIONS FOR SURGERY: Medical necessity: Best corrected visual acuity worse than 20/40 secondary to cataracts with impairment of ability to carry out needs or desired activities, blurred vision, visual distortion, reduced contrast sensitivity and/or glare with association functional impairment and supporting documentation/testing, and cataracts causing symptomatic impairment of visual functions not corrected with tolerable changes in glasses or contact lenses interfering with activities of daily life. PROCEDURE: Consent: The risks, benefits and alternatives of this procedures was discussed with the patient. The patient read and signed the consent forms, was identified and was seated in the exam chair. IOL: MX 60 E 24.0 IOL Diopters: Phacoemulsification with posterior chamber intraocular lens implant: The face was prepped with 5% povidone iodine solution, and a few drops of 5% povidone iodine solution was instilled into the inferior fornix. A non-fenestrated drape was placed over the eye and the lids were parted with the speculum. A paracentesis was made with a 15 degree blade, and 1% lidocaine MPF followed by viscoelastic was injected into the anterior chamber. A 2.4 mm metal micro- keratome was used to create a temporal clear corneal incision. A circular anterior capsulorrhexis was created, followed by hydro-dissection and hydro- delineation. The phacoemulsification hand piece was inserted and the nucleus was removed with the Phaco chop technique. The irrigation-aspiration hand piece was used to remove the residual cortex, and vacuum the posterior capsule. The capsular bag was inflated and viscoelastic and the above-mentioned IOL was injected into the eye with care to insert both leaning and trailing haptics in the capsular bag. The irrigation/aspiration hand piece was reinserted to remove residual viscoelastic from the capsular bag and anterior chamber. The corneal incision was hydrated, and anterior chamber was inflated with sterile BSS via the paracentesis site, and found to be watertight. Postop medication: 1 drop of prednisolone into operative by followed by 1 drop of Cosopt into operative eye followed by 1 drop of Besivance intraoperative by other:
== END 2020-03-09 11:26 | disposition home or self-care (01) ==
LOC: SC 09:37
PROVIDERS: ATTEND Ophthalmology
DX: H25.11 Age-related nuclear cataract, right eye (principal); Z98.42 Cataract extraction status, left eye; I10 Essential (primary) hypertension; E11.9 Type 2 diabetes mellitus without complications; K21.9 Gastro-esophageal reflux disease without esophagitis; F17.210 Nicotine dependence, cigarettes, uncomplicated; M10.9 Gout, unspecified
CPT/HCPCS: 66984; 82962; V2632; J2250; J3490 ×4; J0171; J3010; J2405; 142